=== PATIENT | female | born 1945 | race Caucasian/White ===

== ENCOUNTER 2024-12-03 11:32 | Emergency (ER) | payer MEDICARE ==
[~2024-12-03] VITALS: Ht 152.4 cm; Wt 45.7 kg
[2024-12-03] MEDS ORDERED: ANORO ELLIPTA1 EACH INH (13:49)
[2024-12-03] MEDS ORDERED: REPATHA SU140 MG/1 M SUB-Q (13:50)
[2024-12-03] MEDS ORDERED: EZETIMIBE10 MG PO (13:50)
[2024-12-03] MEDS ORDERED: OMEPRAZOLE20 MG PO (13:50)
[2024-12-03] MEDS ORDERED: LEVOTHYROXINE75 MCG PO (13:50)
[2024-12-03 13:56] VITALS: BP 123/52
== END 2024-12-03 13:56 | disposition home or self-care (01) ==
LOC: ED 11:32
DX: H34.231 Retinal artery branch occlusion, right eye (principal)
CPT/HCPCS: 99283